=== PATIENT | male | born 1990 | race American Indian/Alaskan Native ===

== ENCOUNTER 2017-06-28 11:12 | Emergency (ER) | payer SELFPAY | END 2017-06-28 11:25 | disposition left against medical advice (07) | LOC: ED 11:12 | DX: Z53.21 Procedure and treatment not carried out due to patient leaving prior to being seen by health care provider (principal) ==

== ENCOUNTER 2017-10-24 01:36 | Emergency (ER) | payer SELFPAY | END 2017-10-24 02:50 | disposition left against medical advice (07) | LOC: ED 01:36 | DX: R50.9 Fever, unspecified (principal); Z53.21 Procedure and treatment not carried out due to patient leaving prior to being seen by health care provider ==